=== PATIENT | female | born 1975 | race Two or more races ===

== ENCOUNTER 2016-12-10 01:18 | Emergency (ER) | payer SELFPAY ==
[~2016-12-10] VITALS: Ht 170.2 cm; Wt 98.0 kg
--- NOTE | ~2016-12-10 | CT4 ---
[facility] A Service of [facility] RADIOLOGY TEXT RESULTS PATIENT: RAMBO STOVALL LOCATION: [facility] : 75 UNIT #: [id number] AGE: [address]: Anthony Ely SEX: F ORDER DR: [id number] [facility]. [place], [place] [address] [id number] MR#: [id number] Acc #: [id number] NAME: RAMBO STOVALL : 1975 SEX: F STUDY DATE/TIME: 12/10/2016 2:24 UNIT: [facility] ROOM: STUDY DESCRIPTION: CT Abd and Pelv Wo Cont Attending Physician: Anthony Ely P.A.-C. Ordering Physician: Anthony Ely P.A.-C. Primary Care Physician: Primary Care Physician No MEDICAL IMAGING REPORT This report is preliminary unless electronic signature is present EXAM CT abdomen and pelvis, noncontrast, kidney stone protocol, 12/10/2016 HISTORY 41-year-old female in the ED complaining of right flank pain and right upper abdomen pain, present for about [address] examination of the abdomen and pelvis without oral or IV contrast using kidney stone protocol. This CT exam was performed with one or more of the following radiation dose reduction techniques: automatic exposure control, adjustment of mA and/or kV according to patient size, and iterative reconstruction. FINDINGS ABDOMEN FINDINGS: No definite radiopaque stone material within the kidneys, ureters or urinary bladder. No evidence of urinary obstruction. Multiple pelvic phleboliths are present in the region of the distal ureters and the pelvis. Multiple gallstones within a mildly distended, mildly thick-walled gallbladder. No bile duct dilatation. Liver, pancreas and spleen are normal in size and appearance without contrast. Small bowel and colon are normal in caliber and appearance, as imaged. Normal appendix. Normal-caliber abdominal aorta. PELVIS FINDINGS: Uterus, ovaries, urinary bladder and rectum are within normal limits. No inguinal hernia. Limited lung base images show no active disease. IMPRESSION [facility] A Service of [facility] RADIOLOGY TEXT RESULTS PATIENT: RAMBO STOVALL LOCATION: [facility] #: [id number] : 75 UNIT #: [id number] AGE: [address]: Anthony Ely SEX: F ORDER DR: 1. Cholelithiasis. Multiple gallstones within a mildly distended, diffusely thick-walled gallbladder. Correlate for clinical evidence of acute cholecystitis. There is no intrahepatic or extrahepatic bile duct dilatation. No evidence of acute pancreatitis. 2. The remainder of the examination is negative. No nephrolithiasis or evidence of urinary obstruction. Normal appendix.. Dictated by... Seng Kimble M.D. THIS IS AN ELECTRONICALLY VERIFIED REPORT Seng Kimble M.D. at 12/10/2016 6:08 AM Eric TD: 12/10/2016 03:00 JOB #: [id number] MEDICAL IMAGING REPORT Page 1 of 1 COPY
[2016-12-10 01:49] LABS: URINE SOURCE CLEAN CATCH
[2016-12-10 01:54] LABS: BASOPHIL# 0.1 X10e3 (0-0.3); BASOPHIL% 0.9 % (0-2.5); EOSINOPHIL# 0.1 X10e3 (0-0.7); EOSINOPHIL% 1.1 % (0.0-7.0); HEMATOCRIT 39.5 % (35.0-45.0); HEMOGLOBIN 13.9 gm/dL (12.0-16.0); LYMPHOCYTE# 3.4 X10e3 (1.0-3.5); LYMPHOCYTE% 37.1 % (17.0-45.0); MEAN CELL VOLUME 91.9 FL (83-96); MEAN CORPUSCULAR HEMOGLOBIN 32.4 PG (28-34); MEAN CORPUSCULAR HGB CONC 35.3 g/dL (30-36); MEAN PLATELET VOLUME 7.6 FL (6.5-11.5); MONOCYTE# 0.7 X10e3 (0-1.0); MONOCYTE% 7.5 % (3.0-12.0); NEUTROPHIL# 4.9 X10e3 (1.5-7.1); NEUTROPHIL% 53.4 % (40-75); PLATELET COUNT 287 X10e3 (140-420); RED BLOOD COUNT 4.29 X10e (3.90-5.30); RED CELL DISTRIBUTION WIDTH 12.5 % (11.0-15.5); WHITE BLOOD COUNT 9.2 X10e3 (4.0-10.5)
[2016-12-10 01:55] LABS: DIFF IND NO; URINE APPEARANCE CLEAR; URINE BILIRUBIN NEG (NEG); URINE BLOOD 2+ (NEG); URINE COLOR YELLOW; URINE GLUCOSE NEG (NEG); URINE KETONE NEG (NEG); URINE LEUKOCYTE ESTERASE 1+ (NEG); URINE NITRATE NEG (NEG); URINE PH 7.5 (5-8); URINE PROTEIN NEG (NEG); URINE SPECIFIC GRAVITY 1.016 (1.003-1.035); URINE UROBILINOGEN 0.2 MG/DL (NEG)
[2016-12-10 01:58] LABS: URINE BACTERIA AUWI NEG (NEGATIVE); URINE SQUAMOUS EPITHELIAL CELL OCC /[HPF]
[2016-12-10 02:02] LABS: CULTURE INDICATED? NO
[2016-12-10 02:15] LABS: ALBUMIN SERUM 4.5 g/dL (3.5-5.0); ALKALINE PHOSPHATASE 58 U/L (32-92); ALT (SGPT) 32 U/L (10-40); AST (SGOT) 24 U/L (10-42); BILIRUBIN,TOTAL 0.2 mg/dL (0.2-2.0); BLOOD UREA NITROGEN 8 mg/dL (9-23); CARBON DIOXIDE 24 mmol/L (22-31); CHLORIDE 103 mmol/L (100-111); CREATININE SERUM 0.5 mg/dL (0.6-1.4); GLOM FILT RATE Estimated 120.2 mL/min (>60); GLUCOSE FASTING 119 mg/dL (70-110); LIPASE 33 U/L (22-51); POTASSIUM 3.7 mmol/L (3.5-5.1); PROTEIN TOTAL SERUM 8.1 g/dL (6.0-8.3); SODIUM 135 mmol/L (135-145)
[2016-12-10 02:16] LABS: BILIRUBIN, DIRECT <0.1 mg/dL (0.0-0.2); BILIRUBIN,INDIRECT 0.1 mg/dL (0.0-0.9)
== END 2016-12-10 04:24 | disposition home or self-care (01) ==
LOC: CED 01:18
PROVIDERS: Physician Assistant
DX: K80.20 Calculus of gallbladder without cholecystitis without obstruction (principal)
CPT/HCPCS: 36415; 74176; 80048; 80076; 81003; 83690; 84703; 85025; 96361; 96374; 96375; 99284; J1885; J2405